=== PATIENT | male | born 1965 ===

== ENCOUNTER 2017-03-27 03:58 | Emergency (ER) | payer SELFPAY ==
[2017-03-27 04:12] VITALS: BP 124/89; PULSE 65; RESP 20; TEMP 98.2; O2SAT 100
--- NOTE | 2017-03-27 04:35 | C.PDOC ---
History Of Present Illness 51 YO male come in for evaluation of Right lower toothache gradually developed for past few days. Pt reports, since yesterday, pain is more intense and persistent. Pain is localized over Right lower tooth, non-radiating and worse with pressure. Otherwise, pt denies fever, chills, headache, dizziness, earache , sore throat, drooling, dysphasia, dyspnea, CP, SOB, wheezing,m facial swelling , recent dental work, denies nay other active complaints. Ambulate to ED for evaluation, not in any apparent distress. Time Seen by Provider: 03/27/17 04:15 Chief Complaint (Nursing): Dental Pain History Per: Patient Past Medical History Reviewed: Historical Data, Nursing Documentation, Vital Signs Vital Signs: Last Vital Signs Temp 98.2 F 03/27/17 04:08 Pulse 65 03/27/17 04:08 Resp 20 03/27/17 04:08 BP 124/89 03/27/17 04:08 Pulse Ox 100 03/27/17 04:08 - Medical History PMH: No Chronic Diseases Family History: States: No Known Family Hx - Social History Hx Alcohol Use: Yes Hx Substance Use: No Review Of Systems Except As Marked, All Systems Reviewed And Found Negative. Constitutional: Negative for: Fever, Chills ENT: Positive for: Mouth Pain, Mouth Swelling. Negative for: Ear Discharge, Nose Discharge, Throat Pain, Throat Swelling Cardiovascular: Negative for: Chest Pain Respiratory: Negative for: Cough, Shortness of Breath, Wheezing Gastrointestinal: Negative for: Nausea, Vomiting Musculoskeletal: Negative for: Neck Pain Skin: Negative for: Rash Neurological: Negative for: Altered Mental Status, Headache, Dizziness Physical Exam - Physical Exam Appears: Well, Non-toxic, No Acute Distress Skin: Normal Color, Warm, No Rash, No Ecchymosis Head: Normacephalic Eye(s): bilateral: PERRL Ear(s): Bilateral: Normal Nose: No Flaring, No Discharge Oral Mucosa: Moist, No Drooling, No Trismus Tongue: Normal Appearing Lips: Normal Appearing Teeth: Tender To Palpation (Right lower 2nd premolar) Gingiva: Erythema (Right lower 2nd premolar), Swelling (Right lower 2nd premolar ), Tender Throat: No Erythema, No Exudate, No Drooling, Other (Uvula midline, no edema.) Neck: Trachea Midline, No Midline Cervical Tenderness, No Paracervical Tenderness, No Step Off Deformity, Supple Chest: Symmetrical Respiratory: No Decreased Breath Sounds, No Accessory Muscle Use, No Rales, No Rhonchi, No Stridor, No Wheezing Neurological/Psych: Oriented x3, Normal Speech ED Course And Treatment O2 Sat by Pulse Oximetry: 100 Pulse Ox Interpretation: Normal Progress Note: On re-evaluation, pt is afebrile, hemodynamicaly stable. NOn- toxic. No drooling, no trismus. PulseOx 100% RA. neck: SUpple, (-) meningeal sign. ENT: exam c/w early Right lower 2nd pre-molar, no facial edema or cellulitis. uvula midline, no edema. Lungs: CTA B/L, BS equal B/L. results review and discussed with pt. Pt denies any abx allergy. Pt ref. to F/u with dentist in 2-3 days for re-eval. return if any new changes. Disposition Counseled Patient/Family Regarding: Diagnosis, Need For Followup, Rx Given - Disposition Referrals: [facility] [Provider Group] [facility] [Provider Group] Disposition: HOME/ ROUTINE Disposition Time: 04:33 Condition: STABLE Additional Instructions: WARM SALTY WATER TOOTH BATH 2-3 TIMES DAILY FOR 5 MINUTES TAKE MEDICATION PRESCRIBED FOLLOW UP WITH DENTIST IN 2-3 DAYS FOR RE-EVALUATION. RETURN TO ED IF ANY WORSENING OR NEW CHANGES. Prescriptions: Clindamycin [Cleocin] 300 mg PO Q6 #28 cap Ibuprofen [Motrin Tab] 600 mg PO TID #20 tab traMADol [Ultram] 50 mg PO TID #7 tab Instructions: Dental Abscess (ED) Print Language: FAROESE - Clinical Impression Clinical Impression: Tooth abscess
== END 2017-03-27 05:00 | disposition home or self-care (01) ==
LOC: C.ER 03:58
DX: K04.7 Periapical abscess without sinus (principal)